=== PATIENT | female | born 1995 | race Caucasian/White ===

== ENCOUNTER 2023-01-02 05:33 | Emergency (ER) | payer OTHER ==
[~2023-01-02] VITALS: Ht 167.6 cm; Wt 108.9 kg
[2023-01-02 06:37] LABS: HEMATOCRIT 38.4 % (36.0-45.00); HEMOGLOBIN 12.9 g/dL (12.0-15.00); MEAN CELL VOLUME 82.5 fL (80.00-100.00); MEAN CORPUSCULAR HEMOGLOBIN 27.7 pg (27.00-32.0); MEAN CORPUSCULAR HGB CONC 33.6 g/dl (32.0-36.0); PLATELET COUNT 213 K/uL (150-450); RED BLOOD COUNT 4.65 M/uL (4.00-6.00); RED CELL DISTRIBUTION WIDTH 14.3 % (11.5-14.5)
[2023-01-02 06:56] LABS: CALCIUM 8.1 mg/dL (8.5-10.1); CREATININE SERUM 0.8 mg/dL (0.55-1.02); GFR 86.04; POTASSIUM 3.53 mEq/L (3.5-5.1)
[2023-01-02 08:05] LABS: PH,URINE 5.5 (5.0-8.0); URINE APPEARANCE Clear; URINE BILIRRUBIN Negative (NEGATIVE); URINE BLOOD Small; URINE COLOR Yellow; URINE GLUCOSE Negative (NEGATIVE); URINE LEUKOCYTE Negative; URINE NITRATE Negative; URINE PROTEIN 30 (NEGATIVE); URINE UROBILINOGEN 0.2 E.U./dl
[2023-01-02 08:07] LABS: URINE BACTERIA 547.9 uL (0.0-1933); URINE EPITHELIAL CELLS 45.7 uL (0.0-38.8); URINE RBC 16.9 uL (0.0-20.8); URINE WBC 24.7 uL (0.0-23.2)
== END 2023-01-02 11:25 | disposition home or self-care (01) ==
LOC: ER 05:33
PROVIDERS: General Practice
DX: R19.7 Diarrhea, unspecified (principal); R11.0 Nausea